=== PATIENT | female | born 1945 | race Caucasian/White ===

== ENCOUNTER 2016-06-16 19:39 | Emergency (ER) | payer OTHER ==
[~2016-06-16] VITALS: Ht 167.6 cm; Wt 18.8 kg
[~2016-06-16 19:39] MED LIST: AMBIEN10 MG PO; DEXILANT60 MG PO; FLONASE16 G1 BOTH NARES; FOSAMAX70 MG PO; KLOR-CON 1010 ME1 PO; MICROZIDE12.5 M1 PO; MOTRIN600 MG PO; NORCO 5/3251 TABLET PO; PAXIL30 MG PO; SINGULAIR10 MG PO; TOPROL XL50 MG PO; ULTRAM50 MG PO; VENTOLIN HFA18 GM IH; XANAX0.25 MG PO; XYZAL5 MG PO; ZANAFLEX4 MG PO; ZOCOR40 MG PO
[2016-06-16 21:30] VITALS: BP 141/89
== END 2016-06-16 21:30 | disposition home or self-care (01) ==
LOC: EME 19:39
DX: M79.81 Nontraumatic hematoma of soft tissue (principal); M79.632 Pain in left forearm; I10 Essential (primary) hypertension; E78.5 Hyperlipidemia, unspecified; Z95.5 Presence of coronary angioplasty implant and graft
CPT/HCPCS: 73110; 99281; 99283